=== PATIENT | female | born 1980 | race Caucasian/White ===

== ENCOUNTER 2017-09-29 13:03 | Emergency (ER) | payer BC ==
--- NOTE | 2017-09-29 13:27 | ED ---
Chest Pain HPI - General Chief Complaint: Chest Pain Stated Complaint: chest pain/pressure Time Seen by Provider: 09/29/17 13:10 Source: patient, RN notes reviewed Mode of arrival: ambulatory Limitations: no limitations - History of Present Illness Initial Comments: This is a 36-year-old female presents emergency Department chief complaint of chest pain. Patient states she's been having ongoing on and off chest pain on the left side states that it was dull to sharp pain but now is more of a pressure sensation. She does admit that she's had some associated shortness of breath. Patient denies any prior cardiac history denies hypertension, hyperlipidemia, diabetes or family history of heart disease. Patient has no other associated symptoms other than shortness breath denies any nausea, vomiting and diaphoretic episodes denies any focal weakness. Patient has not taken any current medications. Patient does state that she occasionally has heartburn used to take a prescription for that but rarely takes it. - Related Data Home Medications Medication Instructions Recorded Confirmed Aspirin/Acetaminophen/Caffeine 1 tab PO DAILY PRN 09/29/17 09/29/17 [Excedrin Migraine Caplet] Cider Vinegar [Apple Cider Vinegar] 300 mg PO DAILY 09/29/17 09/29/17 Loperamide [Imodium] 2 mg PO DAILY 09/29/17 09/29/17 Allergies Allergy/AdvReac Type Severity Reaction Status Date / Time Sulfa (Sulfonamide Allergy Rash/Hives Verified 09/29/17 13:33 Antibiotics) Review of Systems ROS Statement: Those systems with pertinent positive or pertinent negative responses have been documented in the HPI. ROS Other: All systems not noted in ROS Statement are negative. EKG Findings - EKG Comments: EKG Findings:: EKG performed at 13:19 normal sinus rhythm with a rate of 75 MT 112 QRS 78 QT/QTC 372/415 Past Medical History Past Medical History: No Reported History History of Any Multi-Drug Resistant Organisms: None Reported Past Surgical History: Hysterectomy Past Psychological History: No Psychological Hx Reported Smoking Status: Never smoker Past Alcohol Use History: Occasional Past Drug Use History: None Reported General Exam Limitations: no limitations General appearance: alert, in no apparent distress ENT exam: Present: normal exam, normal oropharynx, mucous membranes moist Neck exam: Present: normal inspection. Absent: tenderness, meningismus, lymphadenopathy Respiratory exam: Present: normal lung sounds bilaterally. Absent: respiratory distress, wheezes, rales, rhonchi, stridor, chest wall tenderness Cardiovascular Exam: Present: regular rate, normal rhythm, normal heart sounds. Absent: systolic murmur, diastolic murmur, rubs, gallop, clicks GI/Abdominal exam: Present: soft, normal bowel sounds. Absent: distended, tenderness, guarding, rebound, rigid Skin exam: Present: warm, dry, intact, normal color. Absent: rash Course Vital Signs 09/29/17 09/29/17 13:05 13:28 Temperature 98.2 F Pulse Rate 74 Pulse Rate [ 81 Functional Support Analyst ] Respiratory 18 Rate Blood Pressure 137/84 O2 Sat by Pulse 99 Oximetry Chest Pain MDM - MDM 36-year-old female presents emergency from for intermittent chest pain. Patient had lab work, EKG, chest x-ray all within normal limits. Patient symptoms are not present this time. She will be given information for follow- up with cardiology for possible echo, stress test and further evaluation. Patient negative d-dimer. Patient help questions answered to the best of knowledge and will follow-up Disposition Clinical Impression: Atypical chest pain Disposition: HOME SELF-CARE Condition: Stable Instructions: Chest Pain (ED) Additional Instructions: Please return to the Emergency Department if symptoms worsen or any other concerns. Is patient prescribed a controlled substance at d/c from ED?: No Referrals: Tee Mercedes MD [Primary Care Provider] - 1-2 days Latosha Vera MD [STAFF PHYSICIAN] - 1-2 days Time of Disposition: 14:48
[2017-09-29 13:41] LABS: Basophils % (A) 0 %; Eosinophils # (A) 0.2 k/uL (0-0.7); Eosinophils % (A) 2 %; HCT 46.4 % (34.0-46.0); HGB 14.8 gm/dL (11.4-16.0); Lymphocytes # (A) 1.9 k/uL (1.0-4.8); Lymphocytes % (A) 30 %; MCH 29.6 pg (25.0-35.0); MCV 92.5 fL (80.0-100.0); Mean Platelet Volume 6.6; Monocytes # (A) 0.4 k/uL (0-1.0); Monocytes % (A) 7 %; Neutrophils # (A) 3.8 k/uL (1.3-7.7); Neutrophils % (A) 59 %; Platelet Count 325 k/uL (150-450); RBC 5.01 m/uL (3.80-5.40); RDW 13.1 % (11.5-15.5); WBC 6.4 k/uL (3.8-10.6)
--- NOTE | 2017-09-29 13:45 | XR ---
EXAMINATION TYPE: XR chest 2V DATE OF EXAM: 09/29/2017 COMPARISON: None HISTORY: 36-year-old female with chest pain and shortness of breath TECHNIQUE: PA and lateral views FINDINGS: The cardiomediastinal silhouette, aorta, and pulmonary vasculature are within normal limits. Lungs an d pleural spaces are clear. IMPRESSION: No acute cardiopulmonary process.
[2017-09-29 13:55] LABS: ALT 39 U/L (9-52); AST 27 U/L (14-36); Albumin 4.8 g/dL (3.5-5.0); Alkaline Phosphatase 90 U/L (38-126); Anion Gap 13 mmol/L; Blood Urea Nitrogen 12 mg/dL (7-17); Calcium 9.8 mg/dL (8.4-10.2); Carbon Dioxide 25 mmol/L (22-30); Chloride 101 mmol/L (98-107); Glucose 84 mg/dL (74-99); Lipase 68 U/L (23-300); Magnesium 1.8 mg/dL (1.6-2.3); Potassium 3.8 mmol/L (3.5-5.1); Sodium 139 mmol/L (137-145); Total Bilirubin 0.4 mg/dL (0.2-1.3)
[2017-09-29 13:56] LABS: D-Dimer 0.29 mg/L FEU (<0.60); Prothrombin Time 10.2 sec (9.0-12.0)
[2017-09-29 14:02] LABS: Creatine Kinase 77 U/L (30-135)
[2017-09-29 14:15] LABS: Creatine Kinase MB 0.3 ng/mL (0.0-2.4); Troponin I <0.012 ng/mL (0.000-0.034)
[2017-09-29 14:58] VITALS: BP 133/74; PULSE 85; RESP 16; TEMP 98.5
== END 2017-09-29 15:06 | disposition home or self-care (01) ==
LOC: EC 13:03
DX: R07.89 Other chest pain (principal); R06.02 Shortness of breath; Z79.899 Other long term (current) drug therapy; Z88.2 Allergy status to sulfonamides
CPT/HCPCS: 36415; 71046; 80053; 82550; 82553; 83690; 83735; 83880; 84484; 85025; 85379; 85610; 85730; 93005; 99285

== ENCOUNTER → 2019-12-01 | Outpatient (CLI) | payer BC ==
--- NOTE | 2019-12-01 14:27 | MR ---
EXAMINATION TYPE: MR brain wo/w con DATE OF EXAM: 12/01/2019 COMPARISON: HISTORY: Headaches CONTRAST: Performed utilizing 4.5 mL intravenous Gadavist gadolinium contrast. TECHNIQUE: Multiplanar, multiecho imaging on a 3.0 Luz Maria magnet is performed through the brain. Stud y is performed within 24 hours of arrival to the hospital. The craniovertebral junction is normal. The pituitary is normal. Diffusion-weighted imaging is performed. No abnormal hyperintensity is present to suggest an acute i ntracranial infarct or acute ischemic change. Through the brain appears normal. No suspicious punctate hyperintensities typically associated with m igraine headaches are identified. Ventricles and sulci are appropriate for the patient age. IMPRESSIONS: 1. Normal pre and postcontrast MRI brain.
--- NOTE | 2019-12-01 14:34 | MR ---
EXAMINATION TYPE: MR angio head wo con DATE OF EXAM: 12/01/2019 COMPARISON: None HISTORY: Headaches CONTRAST: None TECHNIQUE: Multiplanar multiecho imaging on a 3.0 Luz Maria magnet is performed through the [place]. 3-D enff-jz-porfrg imaging is performed. Source images are reviewed on the computer in the axi al plane. Reconstructed images rotating on the computer are reviewed. FINDINGS: The internal carotid arteries bifurcate normally into A1 and M1 segments. The A2 segments are normal. Middle cerebral artery branches are normal. Anterior communicating artery is absent. The right posterior communicating artery is patent. The left posterior communicating artery is patent. Vertebrobasilar arteries within the wpdod-hq-xzkj are normal. Posterior cerebral vasculature is norm al. No suspicious aneurysm or aneurysmal dilatation is evident. No obstructions are identified. No significant flow-limiting stenosis is evident. IMPRESSIONS: 1. NORMAL MRA [place].
== END | disposition home or self-care (01) ==
LOC: RADMRIMAIN 12:18
PROVIDERS: ATTEND Psychiatry & Neurology Neurology
DX: R51 Headache (principal); D43.2 Neoplasm of uncertain behavior of brain, unspecified
CPT/HCPCS: 70544; 70553; A9585

== ENCOUNTER 2021-07-20 05:59 | Day surgery (SDC) | payer OTHER ==
[2021-07-17 08:05] VITALS: BMI 18.8
--- NOTE | 2021-07-19 19:07 | P.GSHP ---
History of Present Illness H&P Date: 07/19/21 40yofemale witha painful 5 mm proximal ureteral stone who comes for eswl to treat this stone. The alternatives have been discussed. This is her first stone There is a fh of stones. She comes for eswl right - Constitutional Constitutional: Denies chills, Denies fever - EENT Eyes: denies blurred vision, denies pain Ears, nose, mouth and throat: Denies headache, Denies sore throat - Cardiovascular Cardiovascular: Denies chest pain, Denies shortness of breath - Respiratory Respiratory: Denies cough, Denies 7 - Gastrointestinal Gastrointestinal: Denies abdominal pain, Denies diarrhea, Denies nausea, Denies vomiting - Genitourinary (Female) Genitourinary: Denies dysuria, Denies hematuria - Genitourinary (Male) Genitourinary: Denies dysuria, Denies hematuria - Musculoskeletal Musculoskeletal: Denies myalgias - Integumentary Integumentary: Denies pruritus, Denies rash - Neurological Neurological: Denies numbness, Denies weakness - Psychiatric Psychiatric: Denies anxiety, Denies depression - Endocrine Endocrine: Denies fatigue, Denies weight change Past Medical History Past Medical History: Fibromyalgia, Musculoskeletal Disorder, Osteoarthritis (OA) Additional Past Medical History / Comment(s): POTS syndrome-takes corlanor for tachycardia, hypotension, IBS, lesion on liver-PCP monitors, DDD, EDS(Francoise Danlos syndrome) History of Any Multi-Drug Resistant Organisms: None Reported Past Surgical History: Hysterectomy Additional Past Surgical History / Comment(s): colonoscopies Past Anesthesia/Blood Transfusion Reactions: No Reported Reaction Smoking Status: Never smoker - Past Family History Mother Family Medical History: No Reported History Medications and Allergies Home Medications Medication Instructions Recorded Confirmed Type Ferrous Sulfate [Feosol] 325 mg PO DAILY 07/11/21 07/16/21 History Fludrocortisone [Florinef] 0.1 mg PO DAILY 07/11/21 07/16/21 History Ivabradine HCl [Corlanor] 2.5 mg PO HS 07/11/21 07/16/21 History Ivabradine HCl [Corlanor] 5 mg PO DAILY 07/11/21 07/16/21 History Mirtazapine 7.5 mg PO HS 07/11/21 07/16/21 History Rimegepant Sulfate [Nurtec Odt] 75 mg SL DAILY PRN 07/11/21 07/16/21 History Acetaminophen-Codeine 300-30mg 1 - 2 tab PO Q4-6H PRN 07/17/21 07/17/21 History [Tylenol w/codeine #3] Allergies Allergy/AdvReac Type Severity Reaction Status Date / Time Sulfa (Sulfonamide Allergy Rash/Hives Verified 07/16/21 14:36 Antibiotics) Surgical - Exam - General well nourished, moderate distress - Eyes PERRL - ENT no hearing loss - Neck trachea midline - Respiratory normal expansion, normal respiratory effort - Cardiovascular Rhythm: regular - Abdomen Abdomen: soft, tender - Integumentary no rash, no growths - Neurologic normal coordination, normal sensation - Musculoskeletal normal gait, normal posture - Psychiatric oriented to time, oriented to person, oriented to place, speech is normal, memory intact Results - Imaging CT scan - abdomen: report reviewed, image reviewed CT scan - pelvis: report reviewed, image reviewed Assessment and Plan Assessment: Impression: right ureteral stone. PLan: ESWL right
[~2021-07-20 05:59] MED LIST: DEXAMETHASONE SOD PHOSPHATE 4 MG/ML 1 ML VIAL IV ONE; HYDROmorphone 0.5 MG/0.5 ML SYRINGE IVP PRN; LACTATED RINGERS 1,000 ML IV SCH; ONDANSETRON 4 MG/2 ML VIAL IVP ONE
--- NOTE | 2021-07-20 06:22 | XR ---
EXAMINATION TYPE: XR KUB DATE OF EXAM: 07/20/2021 COMPARISON: NONE HISTORY: Preop TECHNIQUE: Single view FINDINGS: There is no sign of intestinal obstruction or pneumoperitoneum. Fecal pattern is normal. Th ere is no evidence of a mass. No definite calcifications over the kidneys. This 3 mm rounded calcific ation over the right paraspinal region at the L4-5 level that could be in the proximal right ureter. IMPRESSION: Possible right ureteral calculus does not change in position compared to the CT scan of .
[2021-07-20 06:35] VITALS: RESP 16; TEMP 97.3
[2021-07-20 06:51] LABS: Glucose,Whole Blood 86 mg/dL (75-99)
[2021-07-20] MEDS ORDERED: HYDROCORTISONE SUCCINATE 100 MG/2 ML VIAL IVP ONE (06:54)
[2021-07-20] MEDS ORDERED: MIDAZOLAM 2 MG/2 ML VIAL ONE (07:23)
[2021-07-20] MEDS ORDERED: fentaNYL (PF) 50 MCG/ML 2 ML AMP ONE (07:23)
[2021-07-20] MEDS ORDERED: LIDOCAINE 1% INJ 10MG/ML (20 ML MDV) ONE (07:23)
[2021-07-20] MEDS ORDERED: GLYCOPYRROLATE 0.2 MG/ML 2 ML VIAL ONE (07:23)
[2021-07-20] MEDS ORDERED: PROPOFOL 10 MG/ML 20 ML VIAL IV ONE (07:23)
--- NOTE | 2021-07-20 07:56 | P.OP ---
Date of Procedure: 07/20/21 Preoperative Diagnosis: Right ureteral stone Postoperative Diagnosis: Same Procedure(s) Performed: Extracorporeal shockwave lithotripsy 2500 shocks at energy level IV Anesthesia: MAC Surgeon: Tee Herring Pathology: none sent Condition: stable Disposition: PACU Indications for Procedure: The patient is a 40. She has a 5-6 mm proximal ureteral stone on the right causing colic she comes for shockwave lithotripsy. Alternatives have been discussed. Description of Procedure: Patient brought to the operating suite. She's placed on the lithotripsy table supine position. The stone was seen in 2 views with fluoroscopy. A total 2500 shocks at energy level IV administered with a compact delta 2 lithotripter. The stone appears to fracture. Then the procedure the patient awake and returned recovery in good condition. She'll be discharged home upon recovery.
[2021-07-20] MEDS ORDERED: HYDROcodone/APAP 5-325MG 1 EACH TAB ONE (08:42)
[2021-07-20 09:00] VITALS: BP 103/67; PULSE 84
== END 2021-07-20 09:15 | disposition home or self-care (01) ==
LOC: ORWHC2ENDO 05:59
PROVIDERS: ATTEND Urology
DX: N20.1 Calculus of ureter (principal); M79.7 Fibromyalgia; M19.90 Unspecified osteoarthritis, unspecified site; I49.8 Other specified cardiac arrhythmias; I95.9 Hypotension, unspecified; K58.9 Irritable bowel syndrome, unspecified; Q79.60 Ehlers-Danlos syndrome, unspecified; K76.9 Liver disease, unspecified; Z90.710 Acquired absence of both cervix and uterus; Z79.899 Other long term (current) drug therapy; Z88.2 Allergy status to sulfonamides
CPT/HCPCS: 74018; 50590; J2250; J1720; J2405; J2001; J3010; J2704

== ENCOUNTER → 2021-07-27 | Outpatient (CLI) | payer OTHER ==
--- NOTE | 2021-07-27 12:39 | XR ---
EXAMINATION TYPE: XR KUB DATE OF EXAM: 07/27/2021 HISTORY: Pain Comparison: None.Single KUB is submitted for interpretation. Findings: Right renal calculi: None Visualized. Right ureteral calculi: I cannot exclude a 3 mm calculus overlying the right S1 region. Correlate cli nically. Left renal calculi: None Visualized. Left ureteral calculi: None Visualized. Pelvic calcifications: Stable phleboliths noted within the pelvis. Bowel gas pattern is unremarkable. No free air. No mass effects. IMPRESSION: 1. I cannot exclude a 3 mm calculus overlying the right S1 region. Correlate clinically.
== END | disposition home or self-care (01) ==
LOC: RADXRMAIN 09:37
PROVIDERS: ATTEND Urology
DX: N20.1 Calculus of ureter (principal)
CPT/HCPCS: 74018

== ENCOUNTER → 2023-08-26 | Outpatient (CLI) | payer BC ==
--- NOTE | 2023-09-02 12:53 | MR ---
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 TECHNIQUE: Multi planar, multi sequence imaging was performed of the neck soft tissues. MR contrast: IV Contrast: 5 cc Gadavist FINDINGS: No abnormal postcontrast enhancement. Several nonenlarged anterior chain lymph nodes are i dentified. No greater than 1.0 cm in short axis lymph node within the neck. No soft tissue abnormalit y definitely appreciated near the left left nasal passage. Level 1A lymph nodes measuring up to 6 mm in short axis. The parotid glands and the expected locations of the facial nerve bilaterally are symm etric. The glottis appears unremarkable. There is no evidence to suggest a soft tissue mass. The cervical vertebral bodies have preserved heights and alignment. Multilevel disc desiccation and a nterior osteophytosis are present. The cervical spinal cord demonstrates a normal appearance. IMPRESSION: 1. No abnormal postcontrast enhancement. 2. No greater than 1.0 cm in short axis lymph node within the neck. 3. No soft tissue abnormality definitely appreciated near the left nasal passage 4. Multilevel degenerative disc disease with associated osteoarthritic changes.
== END | disposition home or self-care (01) ==
LOC: RADMRIMAIN 07:04
PROVIDERS: ATTEND Otolaryngology
DX: M50.30 Other cervical disc degeneration, unspecified cervical region (principal); M47.812 Spondylosis without myelopathy or radiculopathy, cervical region; D48.19 Other specified neoplasm of uncertain behavior of connective and other soft tissue; R20.0 Anesthesia of skin; R22.0 Localized swelling, mass and lump, head
CPT/HCPCS: 70543; A9585

== ENCOUNTER → 2023-10-19 | Outpatient (CLI) | payer BC ==
--- NOTE | 2023-10-19 14:19 | CT ---
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 Lump below left eye since February. CT DLP: 632 mGycm Automated exposure control for dose reduction was used. TECHNIQUE: CT scan of the facial bones is performed without contrast, axial images are obtained, mihai nal reformatted images are also reviewed. Lack of contrast limits evaluation. FINDINGS: The paranasal sinuses including the frontal, ethmoid, sphenoid, and maxillary sinuses bila terally are well-aerated without abnormal opacification. The ostiomeatal complex is patent bilateral ly on the coronal images. Visualized portion of mastoid air cells show no abnormal opacification. The globes are intact bilate rally. No visible lesion underneath the left eye. Lack of contrast is limiting. Strict clinical correlation is recommended. Dermatology Consult advised. Globes are symmetric. Optic nerves as well as extraocular musculature appear unremarkable. IMPRESSION: No visible lesion underneath the left eye. Lack of contrast is limiting. Strict clinical correlation is recommended. Dermatology Consult advised.
== END | disposition home or self-care (01) ==
LOC: RADCTMAIN 13:20
PROVIDERS: ATTEND Otolaryngology
DX: D48.19 Other specified neoplasm of uncertain behavior of connective and other soft tissue (principal)
CPT/HCPCS: 70486